=== PATIENT | male | born 1945 | race Caucasian/White ===

== ENCOUNTER 2018-06-20 22:04 | Emergency (ER) | payer MEDICARE, SELFPAY ==
[2018-06-20 22:06] VITALS: BP 166/80; PULSE 79; RESP 17; RESP 18; TEMP 36.4; O2SAT 95; O2SAT 96; BMI 26.2
[2018-06-20 22:28] LABS: Bacteria 0 SEEN /hpf (None Seen); Mucous, Urine 0 SEEN /hpf (<or=2+)
[2018-06-20 22:34] LABS: Color, Urine Yellow (Yellow); Glucose, Dipstick Normal (Normal); Ketone-Dipstick Negative (Negative); Leukocyte Esterase-Dipstick Negative /ul (Negative); Nitrite-Dipstick Negative (Negative); Occult Blood-Urine 250 /ul (Negative); Protein-Dipstick 15 mg/dl (Negative); Specific Gravity, Urine 1.025 (1.002-1.030); Urine Bilirubin Dipstick Negative (Negative); Urine Clarity Clear (Clear); Urine Urobilinogen Normal (Normal)
[2018-06-20 22:37] LABS: Red Blood Cells-Urine 50-100 SEEN /hpf (0-5); Squamous Epithelial Cells - UA 0-5 SEEN /hpf (0-5); White Blood Cells 0-5 SEEN /hpf (0-5)
--- NOTE | 2018-06-20 22:48 | CT_ITS ---
STUDY: CT ABDOMEN AND PELVIS WITHOUT CONTRAST REASON FOR EXAM: Male, 72 years old. Left flank pain. RADIATION DOSAGE (If Supplied By Facility): CTDIvol = ( 7.25 ) mGy, DLP = ( 421.79 ) mGycm TECHNIQUE: Transaxial images were obtained from the dome of the diaphragm to the symphysis pubis without oral contrast, and without intravenous contrast. Sagittal and coronal images were reconstructed. Individualized dose optimization techniques were used for this CT. COMPARISON: None. FINDINGS: There are chronic interstitial fibrotic changes of the lung bases. The visualized portions of the heart are within normal limits. Normal liver. Normal gallbladder and extrahepatic biliary system. Normal spleen. Normal pancreas. Normal bilateral adrenal glands. There is 4.3 cm cyst of the right kidney. There is 0.6 cm stone of the left kidney. There is no hydronephrosis. Normal visualized stomach. Normal small intestine. There are a few colonic diverticula consistent with diverticulosis. The appendix is visualized and appears normal. Normal abdominal aorta. Normal inferior vena cava. Normal retroperitoneum. Normal urinary bladder. There are prostatic calcifications. There is no free fluid in the abdomen or pelvis. Normal abdominal wall. There is degenerative change of the spine CT/Abdomen/Pelvis without Cont IMPRESSION: Left renal stone. No hydronephrosis. Electronically Signed: Harish Avila MD at 23:35 EDT , Service support ,
[2018-06-20] MEDS: Morphine 2 MG/ML Syringe IV (22:59)
[2018-06-20] MEDS: Ondansetron 4 MG/2 ML Vial IV (22:59)
[2018-06-20] MEDS: Ketorolac 30 MG/ML Syringe IV (22:59)
[2018-06-20] MEDS: 0.9% Normal Saline 1,000 ML 250 ML IV (22:59)
[2018-06-20 23:02] LABS: Absolute Lymphocyte Count 1.15 X10^3/ul (0.83-4.51); Absolute Neutrophil Count 5.9 X10^3/uL (2.0-7.7); Basophil# 0.01 X10^3/uL; Basophil% 0.1 % (0-1); Eosinophil# 0.15 X10^3/uL; Eosinophils% 1.9 % (0-5); Hematocrit 47.7 % (40-54); Hemoglobin 15.9 g/dl (13.0-16.5); Lymphocyte # 1.15 X10^3/ul (4.0); Lymphocyte % 14.5 % (19-41); Mean Corp Hgb Conc 33.3 g/gl (32-36); Mean Corpuscular Hgb 29.3 pg (27.0-32.0); Mean Corpuscular Volume 87.8 fL (80-94); Mean Platelet Vol. 9.8 fl (6.2-12.0); Monocyte# 0.71 X10^3/uL; Monocyte% 8.9 % (0-10); Neutrophil # 5.92 X10^3/uL (2.7-7.7); Neutrophil % 74.5 % (47-70); POSITIVE COUNT NO; POSITIVE DIFFERENTIAL NO; POSITIVE MORPHOLOGY NO; Platelet Count 221 K/mm3 (150-450); RBC Distribution Width CV 13.2 % (11.6-14.6); RBC Distribution Width SD 42.3 fl (35.1-43.9); Red Blood Count 5.43 M/mm3 (4.6-6.2)
[2018-06-20 23:13] LABS: Anion Gap 6 (5-15); BUN 20 mg/dL (7-18); BUN/Creat Ratio 18.3 RATIO (10-20); Calcium,Total 9.2 mg/dL (8.5-10.1); Chloride 110 mmol/L (98-107); Creatinine, Serum 1.09 mg/dL (0.70-1.30); EST Glomerular Filtration Rate 71 mL/min (>60); Est Glom Filt Rate - Afr Amer 86 mL/min (>60); Glucose 134 mg/dL (74-106); Potassium 4.1 mmol/L (3.5-5.1); Sodium Level 143 mmol/L (136-145)
--- NOTE | 2018-06-20 23:54 | ED.VISSUMM ---
- ER Visit Summary Date of Service: 06/20/18 Chief Complaint: Left flank pain History of Present Illness: The patient is a 72 M who is visiting [facility] originally from the [facility]. Patient states that recently was diagnosed with kidney stones in the past 2 of them but knows he has about a 5 mm stone in the left kidney. Tonight he developed pain in the left flank that is been constant. He states he had some nausea at one point but that got better. He has a urologist back home. No gross hematuria. Physical Examination: Afebrile vital signs are stable Gen: Well-nourished well-developed Head: Normocephalic atraumatic Eyes: Perrl EOMI ENT: TMs clear no rhinorrhea moist mucous membranes Neck: Supple no lymphadenopathy no JVD nontender CVS: Regular rate rhythm no murmurs normal S1-S2 Respiratory: No distress clear to auscultation bilaterally chest nontender Abdomen: Soft nontender nondistended normal bowel sounds no masses Back: Mild left CVA tenderness Extremity: Nontender no edema Skin: Normal color no rash Neuro: alert orientated ?3 CN II-XII intact normal strength sensation reflexes gait cerebellar Psych: Normal affect normal mood Test Results: CBC and BMP were normal. Urinalysis showed 50-[address] of the flank demonstrated a 6 mm left renal stone but no hydronephroureter. Emergency Department Course and Treatment: Patient received Toradol morphine Zofran and fluids. He feels much better. On the right for [place] and Zofran. To give him a copy of his testing and his CT did take to his urologist back home. Talked about the possible development of shingles. Return if worsening or concerns Impression: 1. Left flank pain 2. Left renal stone This note was generated with [employer] dictation software. It may contain incorrect words, spelling, and punctuation that were not noted in review of the chart prior to signing ED Disposition - Plan for ED Patient: Disposition: Home or Assisted Living Instructions: ED Stone Renal W Colic Prescriptions: Hydrocodone Bitart/Apap 5-325 [[place] 5MG-325MG] 1 tab PO Q6H PRN PRN 3 Days #10 tab PRN Reason: Pain Additional Instructions: Your white blood cell count tonight was 8 Your BUN and creatinine levels were 20 and 1.09 Urinalysis demonstrated 50-[address] demonstrated a 6 mm left renal stone with no associated hydronephrosis Please take a copy of your CT and these results to your urologist in follow-up. Monitor for any rash in the left flank. Particularly a rash that looks like a clear blister on a red base. This would be shingles.
--- NOTE | 2018-06-20 23:59 | ED.DCSUM_ITS ---
- ER Visit Summary Date of Service: 06/20/18 Chief Complaint: Left flank pain History of Present Illness: The patient is a 72 M who is [facility] originally from the [facility]. Patient states that recently was diagnosed with kidney stones in the past 2 of them but knows he has about a 5 mm stone in the left kidney. Tonight he developed pain in the left flank that is been constant. He states he had some nausea at one point but that got better. He has a urologist back home. No gross hematuria. Physical Examination: Afebrile vital signs are stable Gen: Well-nourished well-developed Head: Normocephalic atraumatic Eyes: Perrl EOMI ENT: TMs clear no rhinorrhea moist mucous membranes Neck: Supple no lymphadenopathy no JVD nontender CVS: Regular rate rhythm no murmurs normal S1-S2 Respiratory: No distress clear to auscultation bilaterally chest nontender Abdomen: Soft nontender nondistended normal bowel sounds no masses Back: Mild left CVA tenderness Extremity: Nontender no edema Skin: Normal color no rash Neuro: alert orientated ?3 CN II-XII intact normal strength sensation reflexes gait cerebellar Psych: Normal affect normal mood Test Results: CBC and BMP were normal. Urinalysis showed 50-[address] of the flank demonstrated a 6 mm left renal stone but no hydronephroureter. Emergency Department Course and Treatment: Patient received Toradol morphine Zofran and fluids. He feels much better. On the right for [place] and Zofran. To give him a copy of his testing and his CT did take to his urologist back home. Talked about the possible development of shingles. Return if worsening or concerns Impression: 1. Left flank pain 2. Left renal stone This note was generated with [employer] dictation software. It may contain incorrect words, spelling, and punctuation that were not noted in review of the chart prior to signing ED Disposition - Plan for ED Patient: Disposition: Home or Assisted Living Instructions: ED Stone Renal W Colic Prescriptions: Hydrocodone Bitart/Apap 5-325 [[place] 5MG-325MG] 1 tab PO Q6H PRN PRN 3 Days #10 tab PRN Reason: Pain Additional Instructions: Your white blood cell count tonight was 8 Your BUN and creatinine levels were 20 and 1.09 Urinalysis demonstrated 50-[address] demonstrated a 6 mm left renal stone with no associated hydronephrosis Please take a copy of your CT and these results to your urologist in follow-up. Monitor for any rash in the left flank. Particularly a rash that looks like a clear blister on a red base. This would be shingles.
[2018-06-21] MEDS: Ondansetron ODT 4 MG Tablet PO (00:24)
[2018-06-21] MEDS: HYDROcodone Bitartrate/Apap 5/325 Tablet PO (00:24)
[2018-06-21 00:26] VITALS: BP 144/71; PULSE 74; RESP 18; O2SAT 99
== END 2018-06-21 00:27 | disposition home or self-care (01) ==
PROVIDERS: Emergency Provider Emergency Medicine
DX: N20.1 Calculus of ureter (principal); Z79.82 Long term (current) use of aspirin; Z79.899 Other long term (current) drug therapy; Z87.442 Personal history of urinary calculi
CPT/HCPCS: 74176; 80048; 81001; 85025; 96361; 96374; 96375; 99283; A4216; J2405